=== PATIENT | female | born 1980 | race Caucasian/White ===

== ENCOUNTER 2016-09-19 20:34 | Emergency (ER) | payer MEDICARE | END 2016-09-20 00:27 | disposition home or self-care (01) | LOC: ER1 20:34 | DX: T21.22XA Burn of second degree of abdominal wall, initial encounter (principal); T22.292A Burn of second degree of multiple sites of left shoulder and upper limb, except wrist and hand, initial encounter; F17.210 Nicotine dependence, cigarettes, uncomplicated; X12.XXXA Contact with other hot fluids, initial encounter; Y93.G3 Activity, cooking and baking; Y92.000 Kitchen of unspecified non-institutional (private) residence as the place of occurrence of the external cause; Y99.8 Other external cause status; Z88.8 Allergy status to other drugs, medicaments and biological substances | CPT/HCPCS: 16030; 96361; 96374; 96375; 96376; 99283; J1200; J2060; J2405 ==

== ENCOUNTER → 2020-07-17 | Outpatient (CLI) | payer OTHER ==
[~2020-07-17] MED LIST: ABILIFY 5 MG TAB5 MG PO; BUTALB-ACETAMI1 EAC1 PO; CETIRIZINE HCL10 MG PO; GABAPENTIN100 MG PO; MINIPRESS CAP 11 MG PO; MONTELUKAST SOD10 MG PO; NORCO 5-325 TA1 EACH PO; VITAMIN D21250 MCG PO
== END ==
LOC: EMI 12:56
DX: M54.5 Low back pain (principal); M47.27 Other spondylosis with radiculopathy, lumbosacral region; M48.07 Spinal stenosis, lumbosacral region
CPT/HCPCS: 72148

== ENCOUNTER 2021-05-30 14:54 | Emergency (ER) | payer OTHER ==
[~2021-05-30 14:54] MED LIST changes: +BENZONATATE100 MG PO; +PROVENTIL HFA6.7 GM INH
[2021-05-30 15:50] LABS: HEMOGLOBIN 14.4 gm/dl (12.3-15.3); RED BLOOD COUNT 4.97 M/UL (4.00-5.10); WHITE BLOOD COUNT 8.7 K/UL (4.5-11.0)
[2021-05-30 16:11] LABS: BUN/CREATININE RATIO 12 (0-10)
[2021-05-30] MEDS ORDERED: CORTISPORIN-TC10 M1 EARLF (17:23)
[2021-05-30] MEDS ORDERED: FLONASE 0.05% N16 GM (17:23)
[2021-05-30] MEDS ORDERED: PSEUDOEPHEDRINE60 MG PO (17:23)
[2021-05-30] MEDS ORDERED: IBUPROFEN600 MG PO (17:23)
== END 2021-05-30 17:30 | disposition home or self-care (01) ==
LOC: ER1 14:54
PROVIDERS: Physician Assistant Medical
DX: H92.02 Otalgia, left ear (principal); F17.210 Nicotine dependence, cigarettes, uncomplicated; I10 Essential (primary) hypertension
CPT/HCPCS: 70470; 80053; 85025; 99283; Q9967

== ENCOUNTER 2021-12-10 01:46 | Emergency (ER) | payer OTHER ==
[~2021-12-10 01:46] MED LIST changes: +CORTISPORIN-TC10 M1 EARLF; +FLONASE 0.05% N16 GM; +IBUPROFEN600 MG PO; +PSEUDOEPHEDRINE60 MG PO
[2021-12-10 02:24] LABS: HEMOGLOBIN 12.9 gm/dl (12.3-15.3); RED BLOOD COUNT 4.21 M/UL (4.00-5.10); WHITE BLOOD COUNT 15.1 K/UL (4.5-11.0)
[2021-12-10] MEDS ORDERED: REGLAN10 MG PO (05:29)
== END 2021-12-10 06:03 | disposition home or self-care (01) ==
LOC: ER1 01:46
PROVIDERS: Emergency Medicine
DX: R10.12 Left upper quadrant pain (principal); R10.13 Epigastric pain; R10.811 Right upper quadrant abdominal tenderness; R10.812 Left upper quadrant abdominal tenderness; R10.816 Epigastric abdominal tenderness; F17.200 Nicotine dependence, unspecified, uncomplicated; I10 Essential (primary) hypertension; Z85.42 Personal history of malignant neoplasm of other parts of uterus
CPT/HCPCS: 71045; 80053; 81001; 83690; 84484; 84703; 85025; 86140; 87077; 87086; 87186; 93005; 96374; 96375; 99284; J2270; J2405; Q9967

== ENCOUNTER → 2021-12-12 | Outpatient (CLI) | payer OTHER ==
[~2021-12-12] MED LIST changes: +REGLAN10 MG PO
== END ==
LOC: KOH-I 11:00
DX: M51.17 Intervertebral disc disorders with radiculopathy, lumbosacral region (principal)
CPT/HCPCS: 72148

== ENCOUNTER → 2021-12-24 | Outpatient (CLI) | payer OTHER ==
[~2021-12-24] MED LIST changes: +BUPROPION HCL100 MG PO; +BUTALB-ACETAMI1 EACH PO; +EMGALITY120 MG/1 M SQ; -GABAPENTIN100 MG PO; +GABAPENTIN300 MG PO; +KETOROLAC TROME10 MG PO; +OMEPRAZOLE40 MG PO; +TRULICITY0.75 MG/0. SQ; +VRAYLAR3 MG PO
[2021-12-24 13:54] LABS: HEMOGLOBIN 13.1 gm/dl (12.3-15.3); RED BLOOD COUNT 4.35 M/UL (4.00-5.10); WHITE BLOOD COUNT 7.8 K/UL (4.5-11.0)
[2021-12-24 14:26] LABS: BUN/CREATININE RATIO 25 (0-10)
== END ==
LOC: OPSV2 10:00 → EDSTATUS 12:30 → OPSV2 12:30
PROVIDERS: Orthopaedic Surgery
DX: Z01.818 Encounter for other preprocedural examination (principal); M54.16 Radiculopathy, lumbar region
CPT/HCPCS: 71046; 80048; 81001; 85027; 87081; 87086